=== PATIENT | male | born 1935 | race Caucasian/White ===

== ENCOUNTER 2025-05-21 13:06 | Outpatient (AMB) | payer MEDICARE, SELFPAY ==
--- OUTSIDE RECORDS SUMMARY | 2023-11-22 08:00 | XMS_ITS ---
Author Organization [facility] Address [address] [address] Care Team Providers Care Statistical Clerk Advertising Name Role Phone Dwight Fink Primary Care Provider JOSE Dee Unavailable [phone] REASON FOR VISIT Lt foot callus Encounters Encounter Location Date Provider Diagnosis [facility] [address] [address] 11/22/2023 JOSE LIZ Plan Of Treatment No Information Progress Notes * Rigoberto CARROLLph GDOB:[birth year] (89 yo M)Acc No.[id number]:11/22/2023 Progress Note Patient: Minh MACIEL Provider: Dory Callaway DPM :1935 A ge:88 Y S ex:Male Date:11/22/2023 Phone: Address:[address] [place], [place] [id number] Pcp:Dwight Fink Subjective: * Chief Complaints: * 1 . Lt foot callus. * Medical History: Objective: * Vitals: Assessment: Plan: * Treatment: * Billing Information: * Visit Code: * Procedure Codes: * Electronic signature of Darwin PAREKHPAdriana on 05/21/2025 at 05:16 PM EST Sign off status: Pending * Provider: Dory Callaway DPBishnu Date: 0 11/22/2023 Generated for Ruthie desai/Meli/eTjanenesmitting on: 1 07/22/2024 05:16 PM EST
--- OUTSIDE RECORDS SUMMARY | 2023-11-28 09:00 | XMS_ITS ---
Author Organization [facility] Address [address] [address] Care Team Providers Care Bakery Manager Name Role Phone Dwight Fink Primary Care Provider JOSE Dee Unavailable [phone] REASON FOR VISIT Lt foot callus Encounters Encounter Location Date Provider Diagnosis [facility] [address] [address] 11/28/2023 JOSE LIZ Plan Of Treatment No Information Progress Notes * Rigoberto CARROLLph GDOB:[birth year] (89 yo M)Acc No.[id number]:11/28/2023 Progress Note Patient: Minh MACIEL Provider: Dory Callaway DPM :1935 A ge:88 Y S ex:Male Date:11/28/2023 Phone: Address:[address] [place] [address] [id number] Pcp:Dwight Fink Subjective: * Chief Complaints: * 1 . Lt foot callus. * Medical History: Objective: * Vitals: Assessment: Plan: * Treatment: * Billing Information: * Visit Code: * Procedure Codes: * Electronic signature of Darwin PAREKHPAdriana on 05/21/2025 at 05:16 PM EST Sign off status: Pending * Provider: Dory Callaway DPBishnu Date: 0 11/28/2023 Generated for Ruthie desai/Meli/eTjanenesmitting on: 1 07/22/2024 05:16 PM EST
--- OUTSIDE RECORDS SUMMARY | 2025-01-25 05:45 | XMS_ITS ---
Author Organization [facility] Address [address] [address] Care Team Providers Care Technical Customer Support Specialist Name Role Phone Dwight Fink Primary Care Provider JOSE Dee Unavailable [phone] REASON FOR VISIT Lt foot callus Encounters Encounter Location Date Provider Diagnosis [facility] [address] [address] 01/25/2025 JOSE LIZ Plan Of Treatment No Information Progress Notes * Rigoberto CARROLLph GDOB:[birth year] (89 yo M)Acc No.[id number]:01/25/2025 Progress Note Patient: Minh MACIEL Provider: Dory Callaway DPM :1935 A ge:89 Y S ex:Male Date:01/25/2025 Phone: Address:[address] [place] [address] [id number] Pcp:Dwight Fink Subjective: * Chief Complaints: * 1 . Lt foot callus. * Medical History: Objective: * Vitals: Assessment: Plan: * Treatment: * Billing Information: * Visit Code: * Procedure Codes: * Electronic signature of Darwin PAREKHPAdriana on 05/21/2025 at 05:17 PM EST Sign off status: Pending * Provider: Dory Callaway DPBishnu Date: 0 01/25/2025 Generated for Ruthie desai/Meli/eTjanenesmitting on: 1 07/22/2024 05:17 PM EST
--- OUTSIDE RECORDS SUMMARY | 2025-05-21 10:15 | XMS_ITS | Encounter Summary ---
Author Organization [facility] Address [address] [place] [address] Care Team Providers Care Coconut Cooker Name Role Phone Danae Quintanilla MD Primary Care Provider [phone] Encounter Details Date Type Department Care Team (Late st Contact Info) Description 05/21/2025 10:15 AM EST Ancillary Procedure [facility] Cardiology [facility] [address] [facility] [address] [place] [address] Arrived Social History Tobacco Use Types Packs/Day Years Used Date Smoking Tobacco: Former Cigarettes 0.3 Q uit: 06/13/1994 Smokeless Tobacco: Never Alcohol Use Standard Drinks/Week Comments Yes 2 (1 standard drink = 0.6 oz pur e alcohol) rare Sex and Gender Information Value Date Recorded Sex Assigned at Male 02/28/2025 10:50 AM EDT Legal Sex Male 3:46 AM EST Gender Identity Male 02/28/2025 10:50 AM EDT Sexual Orientation Not on file documented as of this encounter Plan of Treatment Upcoming Encounters Date Type Department Care Team (Late st Contact Info) Description 06/24/2025 12:30 PM EST Ancillary Procedure [facility] Card[facility] [address] [facility] [address] [place] [phone] 09/04/2025 1:10 PM EDT Office Visit [facility] Cardiology [facility] [place] [address] [place] [address] Paula Emmanuel NP [address] [place] [address] [address] [place] [address] 03/19/2026 11:00 AM EDT Ancillary Procedure [facility] [address] [place] [phone] documented as of this encounter Procedures Procedure Name Priority Date/Time Associated Diagnosis Comments CARDIAC DEVICE CHECK- REMOTE- MURJ Routine 05/21/2025 10:12 AM EST documented in this encounter Results * Cardiac device check - Remote- MURJ (05/21/2025 10:12 AM EST) Date Time Interrogation Session [id number] CV DEVICE CHECK Type Interrogation Session Remote Scheduled CV DEVICE CHECK Implantable Pulse Generator Insulation Worker St.[employer]yder CV DEVICE CHECK Implantable Pulse Generator Type IPG CV DEVICE CHECK Implantable Pulse Generator Model 2272 Assurity MRI(TM) CV DEVICE CHECK Implantable Pulse Generator Serial Number [id number] CV DEVICE CHECK Implantable Pulse Generator Implant Date 20210227 CV DEVICE CHECK Battery Remaining Percentage 53.00 CV DEVICE CHECK Battery Remaining Longevity 58.0 CV DEVICE CHECK Battery Voltage 2.990 CV D EVICE CHECK Battery SUPERVISOR PAPER COATING Trigger 2.600 CV DEVICE CHECK Battery Status Middle of Service CV DEVICE CHECK Kasi Statistic RA Percent Paced 87.00 CV DEVICE CHECK Kasi Statistic RV Percent Paced 11.00 CV DEVICE CHECK Atrial Tachy Statistic AT/AF [place] Percent 2.00 CV DEVICE CHECK Lead Channel Sensing Intrinsic Amplitude 2.900 CV DEVICE CHECK Lead Channel Setting Sensing Sensitivity 0.30 CV DEVICE CHECK Lead Channel Impedance Value 390 CV DEVICE CHECK Lead Channel Pacing Threshold Amplitude 0.750 CV DEVICE CHECK Lead Channel Pacing Threshold Pulse Width 0.5 CV DEVICE CHECK Lead Channel RA Pacing Threshold Date 2025-05-20 CV DEVICE CHECK Lead Channel Setting Pacing Amplitude 1.750 CV DEVICE CHECK Lead Channel Setting Pacing Pulse Width 0.5 CV DEVICE CHECK Lead Channel Sensing Intrinsic Amplitude 12.000 CV DEVICE CHECK Lead Channel Setting Sensing Sensitivity 0.50 CV DEVICE CHECK Lead Channel Impedance Value 560 CV DEVICE CHECK Lead Channel Setting Pacing Amplitude 2.000 CV DEVICE CHECK Lead Channel Setting Pacing Pulse Width 0.5 CV DEVICE CHECK Kasi Setting Mode (NBG Code) DDDR CV DEVICE CHECK Kasi Setting Lower Rate Limit 60 CV DEVICE CHECK Kasi Setting AT Mode Switch Rate 180 CV DEVICE CHECK Kasi Setting Maximum Tracking Rate 130 CV DEVICE CHECK Kasi Setting Maximum Sensor Rate 130 CV DEVICE CHECK Kasi Setting PAV Delay 200 CV DEVICE CHECK Kasi Setting CLARE Delay 150 CV DEVICE CHECK Date of Service 2025-06-17 CV DEVICE CHECK Anatomical Region Laterality Modality Device Interroga tion 05/20/2025 3:17 AM EST Impressions 05/21/2025 10:06 AM EST Normal Remote: No Events * Normal Device Function * Alerts or events: None * Battery: Battery is at 53%, 4.83 yrs * Sensing, impedance and thresholds reviewed * Programmed parameters reviewed * Presenting rhythm reviewed * Heart Rate Histograms reviewed * No significant changes noted Normal Remote: With Events * Normal Device Function * Events or Alerts: PAF / Ongoing since 05/19/25 > 26 hours. / Meds include Coumadin / Rate Controlled. * Battery: Battery is at 53%, 4.83 yrs * Sensing, impedance and thresholds reviewed * Programmed parameters reviewed * Presenting rhythm reviewed * Heart Rate Histograms reviewed Narrative Procedure Note Linh Jordan NP - 05/21/2025 IMPRESSION: Normal Remote: No Events * Normal Device Function * Alerts or events: None * Battery: Battery is at 53%, 4.83 yrs * Sensing, impedance and thresholds reviewed * Programmed parameters reviewed * Presenting rhythm reviewed * Heart Rate Histograms reviewed * No significant changes noted Normal Remote: With Events * Normal Device Function * Events or Alerts: PAF / Ongoing since 05/19/25 > 26 hours. / Medsinclude Coumadin / Rate Controlled. * Battery: Battery is at 53%, 4.83 yrs * Sensing, impedance and thresholds reviewed * Programmed parameters reviewed * Presenting rhythm reviewed * Heart Rate Histograms reviewed Linh Jordan NP CV IMPLANTABLE CARDIAC DEVICE PROCEDURES Final Result documented in this encounter Visit Diagnoses Not on filedocumented in this encounter Care Teams Coconut Cooker Relationship Specialty Start Date End Date Danae Qiuntanilla MD [address] [place] [address] PCP - General Pulmonary Disease 04/17/12 documented as of this encounter
--- NOTE | 2025-05-21 13:57 | MHC.PC.OV ---
Vital Signs 05/21/25 14:19 Height 5 ft 3.46 in Weight 150 lb 2 oz BMI 26.2 BP 137/93 H Blood Pressure Location Lt brachial Position Sitting Pulse 62 Pulse Source Pulse Oximeter Temp 97.4 F Temp Source Oral Pulse Oximetry (%) 98 Oxygen Delivery Method Room Air Intake Visit Reasons: STUDENT COUNSELOR / Med Review Accompanied by: Spouse Allergies No Known Allergies Allergy (Verified 05/21/25 13:58) Tobacco use date assessed: 05/21/25 Fall risk assessment: 2 + Falls in past year Last assessed Fall Risk: 05/21/25 Dental Screening Dental Screen Date: 05/21/25 Did you have a dental visit in the last 12 months?: Yes Was dental information given to patient?: Patient has dentist [facility] Family History (Updated 05/21/25 @ 14:18 by Leittia Danielle [facility]) Father Prostate cancer Mother Stroke Brother Diabetes Sister Diabetes Social History Housing: House Patient Tobacco Use Status: Former Tobacco user e-Cigarette/Vaping Use: Never Used service: Yes Current occupational status: retired Cognitive needs: Yes (walker) Hearing needs: No Vision needs: Yes (glasses) Questionnaire PHQ-9 Over the last 2 weeks, how often have you been bothered by any of the following problems? 1. Little interest or pleasure in doing things: not at all 2. Feeling down, depressed, or hopeless: not at all 3. Trouble falling or staying asleep, or sleeping too much: not at all 4. Feeling tired or having little energy: not at all 5. Poor appetite or overeating: not at all 6. Feeling bad about yourself - or that you are a failure or have let yourself or your family down: not at all 7. Trouble concentrating on things, such as reading the newspaper or watching television: not at all 8. Moving or speaking so slowly that other people could have noticed. Or the opposite - being so fidgety or restless that you have been moving around a lot more than usual: not at all 9. Thoughts that you would be better off or of hurting yourself in some way: not at all Total score: 0 Depression Screening Interpretation: Negative Depression Screening Done: Yes Source: Developed by Drs. Pedro Luis Villa, Elise Monterroso, Wilton Hernandez and colleagues, with an educational viry from [employer]. Thrive Questionnaire Date Thrive assessed: 05/21/25 I am a: Patient What is your living situation today?: I have a steady place to live Within the past 12 months, did the food you bought not last and you didn't have the money to get more?: Never true Within the past 12 months, did you worry whether your food would run out before you got money to buy more?: Never true Do you have trouble paying for medicines?: No Do you have trouble getting transportation to medical appointments?: No Do you have trouble paying your heating and electricity bill?: No Do you have trouble taking care of your child, family member or friend?: No Do you have trouble with day-to-day activities such as bathing, preparing meals, shopping, managing finances, etc.?: No Are you currently unemployed and looking for a job?: No Are you interested in more education?: No Please select the resources that you would like help with: None THRIVE Score: 0 AUDIT C Alcohol Use Questionnaire (AUDIT-C) 1. How often do you have a drink containing alcohol?: Never Total Score: 0 RADHA-7 AMB Questionnaire RADHA-7 Date RADHA - 7 assessed: 05/21/25 Feeling nervous, anxious, or on edge: 0 = Not at all Not being able to stop or control worryin = Not at all Worrying too much about different things: 0 = Not at all Trouble relaxin = Not at all Being so restless that it is hard to sit still: 0 = Not at all Becoming easily annoyed or irritable: 0 = Not at all Feeling afraid as if something awful might happen: 0 = Not at all Total RADHA-7 score (0-4 normal; 5-9 mild; 10-14 moderate; 15-21 severe): 0 Source: Developed by Drs. Pedro Luis Villa, Elise Monterroso, Wilton Hernandez and colleagues, with an educational viry from [employer]. Physical exam (Primary Care) Depression Screening Interpretation: Negative Office Procedures Flu Questionnaire Does the patient have a severe egg allergy?: No Does the patient have severe life threatening allergies?: No Does the patient have a fever or illness today?: No Has the patient ever had Guillain-[place] Syndrome?: No Has the patient ever had any past reaction to a flu shot?: No Immunizations Fluarix 9980-1523 (PF) 45 mcg (15 mcg x 3)/0.5 mL IM syringe Performing Provider: Dell Petersen MD Performing Location: [facility] Administered by: Letitia Danielle CMA on 05/21/25 14:27 Dose Route Admin Location Dispensed Lot Number Expiration Date [facility] Shoe Lay Out Planner 0.5 mL IM Right Deltoid 0.5 mL [id number] 12/11/15 [id number] [employer] VIS Given Date VIS Provided VIS Publication Date 05/21/25 Single Vaccine 24 Eligibility Eligibility Date Funding Source Not [facility] Eligible 05/21/25 Private Coding Assessment & Plan Assessment & Plan Orders: Orders Influenza [id number] Immunization Today Z23 - Encounter for immunization
[2025-05-21 14:19] VITALS: BP 137/93; PULSE 62; TEMP 36.3; O2SAT 98; BMI 26.2
--- OUTSIDE RECORDS SUMMARY | 2025-05-21 17:17 | XMS_ITS | Encounter Summary ---
Author Organization [facility] Address [address] [place] [address] Care Team Providers Care Integration Consultant Name Role Phone Danae Quintanilla MD Primary Care Provider [phone] Encounter Details Date Type Department Care Team (Late st Contact Info) Description 05/17/2025 Lab [facility] Cardiology [facility] [address] [place] [address] StarlaChemo Rios MD [address] [place] [address] Dr [address] [place] [address] Longstanding persistent atrial fibrillation (CMS/HCC V24, CMS/HCC V28) Social History Tobacco Use Types Packs/Day Years [...] Description 06/24/2025 12:30 PM EST Ancillary Procedure [facility] Cardiology [facility] [address] [place] [phone] 09/04/2025 1:10 PM EDT Office Visit [facility] [address] [place] [address] Paula Emmanuel NP [address] [place] [address] Dr [address] [place] [address] 03/19/2026 11:00 AM EDT Ancillary Procedure [facility] Cardiology [facility] [address] [place] [address] documented as of this encounter Visit Diagnoses Diagnosis Longstanding persistent atrial fibrillation (CMS/HCC V24, CMS/HCC V28) Encounter for adjustment or management of cardiac device documented in this encounter Orders Lab Orders Without Results Count Last Ordered D ate First Ordered Date PROTHROMBIN TIME WITH INR 1 05/17/2025 documented in this encounter Care Teams Integration Consultant Relationship Specialty Start Date End Date Danae Quintanilla MD [address] [facility] [place] [address] PCP - General Pulmonary Disease 04/17/12 documented as of this encounter
--- OUTSIDE RECORDS SUMMARY | 2025-05-21 17:17 | XMS_ITS | Patient Health Record ---
Author Organization [facility] Address [address] [address] Care Team Providers Care Supercharge Repair Supervisor Name Role Phone Dwight Fink Primary Care Provider JOSE Dee Unavailable [phone] Allergies No Known Allergies Reason For Referral No Information Medications Medication SIG (Take, Route, Frequency, Duration) Notes Start Date End Date Status Aspirin 81 81 MG 1 tablet Orally Once a day Active TheraLith XR - as directed Orally Active Warfarin Sodium 5 MG 1 tablet Orally Onc e a day Active Finasteride 5 MG 1 tablet Orally Once a day Active Flomax 0.4 MG 1 capsule Orally Onc e a day Active Zetia 10 MG 1 tablet Orally Once a day Active Zocor 40 MG 1 tablet in the even ing Orally Once a day Active Metoprolol Tartrate 25 MG 1 tablet with food Orally Twice a day Active Vitamin C 500 MG 1 tablet Orally Once a day Not-Taking Vitamin D 25 MCG (1000 UT) 1 tablet Orally Once a day Active Problems Problem Type SNOMED Code ICD Code Onset Dates Problem Status W/U Status Risk Notes Problem Atherosclerosis (57207216) Unspecified atherosclerosis (I70.90) Active confirmed Problem Acquired hammer toe of left foot (1189399022094642) 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) Active confirmed Vital Signs Heart Rate 80 /min 04/30/2025 Temperature 96.2 degrees Fahrenheit 04/30/2025 Respiratory Rate 20 /min 04/30/2025 Height 5ft 3in in 04/30/2025 Encounters Encounter Location Date Provider Diagnosis [facility] [address] [address] 06/15/2024 JOSE LIZ Acquired deformity of left toe M20.62 ; Callus of toe L84 and Pain in toe of left foot M79.675 [facility] [address] [address] 11/16/2024 JOSE LIZ Acquired deformity of left toe M20.62 ; Callus of toe L84 and Pain in toe of left foot M79.675 [facility] [address] [address] 02/22/2025 JOSE LIZ 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 I reviewed his past medical history. He presents with a recurrent painful pressure callus to the dorsum of the left 2nd PIPJ. We discussed the underlying rigid hammertoe deformity being the culprit, again. I discussed how the deformity rubs in his shoe gear and his body creates an extra layer of keratin tissue to protect from the friction. I advised that the callus will continue to form if the pressure to the toe does not change. His new slip on shoes are likely to blame as they are narrow and have no give and the 2nd toe is rubbing the top. I advised he needs shoes with a bigger toe box. I discussed padding, wearing socks, and shoe gear with a greater depth. I also discussed surgery to decrease the PIPJ flexion deformity to the left 2nd toe. I did advise that surgery should be avoided due to the risks. He did wish to have the callus lesion debrided. I used a sterile 15 blade and debrided the tough keratin layer of skin away from the left 2nd PIPJ down to healthy epithelial skin. He tolerated this well. I provided him with another gel toe sleeve to wear. He did find this very comfortable. He should not wear the shoes he has on today as these are going to create pain. Ultimately he should focus on softer toe box shoe gear. He needs to stay more consistent with the toe sleeve. 06/15/2024 Callus of toe (ICD-10 - L84) 11/16/2024 Acquired deformity of left toe (ICD-10 - M20.62) Patient examined and evaluated. I reviewed his past medical history. He presents with a recurrent painful pressure callus to the dorsum of the left 2nd PIPJ. We discussed the underlying rigid hammertoe deformity being the culprit, again. I discussed how the deformity rubs in his shoe gear and his body creates an extra layer of keratin tissue to protect from the friction. I advised that the callus will continue to form if the pressure to the toe does not change. He has finally changed shoe gear and this is much better. I also discussed surgery to decrease the PIPJ flexion deformity to the left 2nd toe. I did advise that surgery is too much of a risk for him. I think if anything amputation would be needed and this is not neccessary. He did wish to have the callus lesion debrided. I used a sterile 15 blade and debrided the tough keratin layer of skin away from the left 2nd PIPJ down to healthy epithelial skin. He tolerated this well. . He should not wear the shoes he has on today as these are going to create pain. Ultimately he should focus on softer toe box shoe gear. He needs to stay more consistent with the toe sleeve. He can follow back with me as needed. 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 He has a rigid hammertoe deformity to the left 2nd toe that rubs on shoe gear. This creates a painful callus to the PIPJ. He has been wearing better shoes to avoid this. He has been given gel sleeves, but rarely uses these. I discussed that this will continue to occur due to pressure and the deformity. He is too high risk for any surgical procedures. I debrided the callus down to healthier epithelial skin. He tolerated this well. I advised he continue with the softer shoe gear. He has a significant adductovarus to the right 3rd toe causing it to sit under the right 2nd toe. Fairly rigid deformity. I again advised that toe sleeves and spacers are the best conservative measures for this. No lesion or break down to the toes. He will follow back with me as needed. 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 He has a rigid hammertoe deformity to the left 2nd toe that rubs on shoe gear. This creates a painful callus to the PIPJ. He has been wearing better shoes to avoid this. He has been given gel sleeves, but rarely uses these. I discussed that this will continue to occur due to pressure and the deformity. He is too high risk for any surgical procedures. I debrided the callus down to healthier epithelial skin. He tolerated this well. I advised he continue with the softer shoe gear. He has a significant adductovarus to the right 3rd toe causing it to sit under the right 2nd toe. Fairly rigid deformity. I again advised that toe sleeves and spacers are the best conservative measures for this. No lesion or break down to the toes. He will follow back with me as needed. 04/30/2025 Callus of toe (ICD-10 - L84) 02/22/2025 Callus of toe (ICD-10 - L84) 11/16/2024 Pain in toe of left foot (ICD-10 - M79.675) 06/15/2024 Pain in toe of left foot (ICD-10 - M79.675) Plan Of Treatment Pending Test Test Name Order Date Trim skin lesion 12/17/2022 Trim skin lesion 12/14/2023 Insurance Providers Payer Name Payer Address Payer Phone Subscriber Number Group Number Insured Name Patient Relationship to Insured Coverage Start Date Coverage End Date [employer] of [place] [address] [place] [phone] [id number] [place] Self - patient is the insured [employer] [address] [place] [phone] [id number] [place] Self - patient is the insured Medical (General) History Medical History History ICD Code Coronary Artery Disease Hypertension Hyperlipidemia Nephrolithiasis Benign Prostate Hyperplasia Obstructive Sleep Apnea Hyperglycemia 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
--- OUTSIDE RECORDS SUMMARY | 2025-05-21 17:17 | XMS_ITS | Clinical Summary ---
Author Organization [facility] Prior to 11/10/[address] [place] [id number] Care Team Providers Care Head Of Digital Advertising & Integration Name Role Phone Danae Quintanilla MD Primary Care Provider [phone] Social History Tobacco Use Types Packs/Day Years Used Date Smoking Tobacco: Never Assessed Sex and Gender Information Value Date Recorded Sex Assigned at Not on file Gender Identity Not on file Sexual Orientation Not on file Job Start Date Occupation Industry Not on file Not on file Not on file Plan of Treatment Health Maintenance Due Date Last Done Comments Depression Screening 1948 Preventative Health Evaluation 1954 DTap / Tdap / Td (1 - Tdap) 10/26/1955 Shingrix-Zoster Vaccine (1 o f 2) 1986 Fall Risk Assessment 2001 RSV Adult > 60+ Yrs or (1 - 1-dose 75+ series) 10/26/2011 Pneumococcal Vaccine (2 of 2 - PCV) 06/30/2014 06/30/2013 COVID-19 Vaccine (2024-2 6 season) 2025 08/16/2020, 07/26/2020 Influenza Vaccine (#1) 2025 Hepatitis B Vaccines Aged Out No long er eligible based on patient's age to complete this topic RSV Ped < 20 months Aged Out No longe r eligible based on patient's age to complete this topic Care Teams Head Of Digital Advertising & Integration Relationship Specialty Start Date End Date Danae Quintanilla MD [address] [place] [id number] PCP - General Pulmonary Disease 10/14/17
--- OUTSIDE RECORDS SUMMARY | 2025-05-21 17:17 | XMS_ITS | Clinical Summary ---
Author Organization [facility] [address] [place] Address [address] [place] [address] Phone Care Team Providers Care Lean Manufacturing Coordinator Name Role Phone Danae Quintanilla MD Primary Care Provider [phone] Allergies No known active allergies Medications warfarin (COUMADIN) 5 mg tablet TAKE ONE TABLET BY MOUTH ONCE DAILY 90 tablet 04/08/20 25 Active aspirin 81 mg EC tablet Take 1 tablet (81 mg total) by mouth 1 (one) time each day. Active ascorbic acid (Vitamin C) 500 mg tablet Take 1 tablet (500 mg total) by mouth 1 (one) time each day. Active cholecalcifero l (VITAMIN D-3) 25 mcg (1,000 unit) capsule Take 1 capsule (1,000 Units total) by mouth 1 (one) time each day. Active tamsulosin (Flomax) 0.4 mg 24 hr capsule Take 1 capsule (0.4 mg total) by mouth 1 (one) time each day at the same time. Active vit A/vit C/vit E/zinc/copper (PRESERVISION AREDS ORAL) PreserVision AREDS Capsule 04/06/20 22 Active finasteride (PROSCAR) 5 mg tablet Take 1 tablet (5 mg total) by mouth 1 (one) time each day. Do not crush, chew, or split. Active ezetimibe (Zetia) 10 mg tablet Take 1 tablet (10 mg total) by mouth 1 (one) time each day at the same time. 30 each 2 04/09/20 25 026 Active simvastatin (ZOCOR) 40 mg tablet Take 1 tablet (40 mg total) by mouth at bedtime. 90 each 2 04/09/20 25 Active metoprolol succinate (TOPROL-XL) 50 mg 24 hr tablet TAKE ONE TABLET BY MOUTH ONCE DAILY 90 tablet 3 04/23/20 25 Active metoprolol succinate (TOPROL-XL) 50 mg 24 hr tablet TAKE ONE TABLET BY MOUTH ONCE DAILY 90 tablet 1 11/13/19 25 025 Discontinued Active Problems Problem Noted Date Diagnosed Date Paroxysmal atrial fibrillation 04/09/2025 Assessment & Plan (04/09/2025 3:03 PM EDT): History of paroxysmal atrial fibrillation on rate control therapy with beta- mery. Continues on anticoagulation therapy with warfarin. No abnormal bleeding has been noted. 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 At his last office visit in December 2023, recent echocardiogram at that time showed new mild reduced LVEF. Nuclear stress test in November 2023 showed inferior wall infarct without any significant changes when compared to the prior nuclear stress test from December 2021; no ischemia. At his last office visit, it was recommended he undergo cardiac PYP scan to rule out TTR amyloidosis and associated lab testing to rule out AL amyloidosis. Unfortunately, this was not completed. We discussed his prior testing including stress test, echocardiogram and reasoning for ordering cardiac PYP scan. At this time, through shared decision making with the patient and his spouse, we agreed he undergo repeat echocardiogram to reevaluate his LV function and I will notify him of the results as soon as it become available. We discussed depending on his LVEF, he will consider proceeding with amyloidosis workup. Depending on the results, we discussed possibly optimizing GDMT. In the meantime, he will continue on beta-mery therapy. He appears euvolemic on physical exam. Orders: Transthoracic echocardiogram (TTE) complete with PRN contrast, bubble, strain, and 3D order panel; Future Coronary artery disease invo lving [place] coronary artery of [place] heart without angina pectoris 04/09/2025 Assessment & Plan (04/09/2025 3:03 PM EDT): Patient has a history of coronary artery disease status post CABG x 5 in the year 1999. Nuclear stress test November 2023 showed an infarct in the basal inferior wall without ischemia. Patient has a baseline inferior/basal inferior wall infarct when compared to nuclear stress test June 2021. There were no areas of ischemia. Currently, he denies any anginal symptoms or episodes of chest pain. He continues on beta-mery, aspirin, Zetia and statin. Orders: Transthoracic echocardiogram (TTE) complete with PRN contrast, bubble, strain, and 3D order panel; Future Primary hypertension 04/09/2025 Assessment & Plan (04/09/2025 3:03 PM EDT): Blood pressure well-controlled today. He will continue his current antihypertensive medication regimen as prescribed. Resolved Problems Problem Noted Date Diagnosed Date Resolved Date Longstanding persistent atrial fibrillation 04/27/2024 04/09/2025 Encounters Date Type Department Care Team Description 05/21/2025 10:15 AM EST Ancillary Procedure [facility] [address] [place] [phone] Arrived 05/17/2025 Lab [facility] [address] [facility] [address] [place] [address] Chemo Morse MD Longstanding persistent atrial fibrillation (CMS/HCC V24, CMS/HCC V28) 05/13/2025 11:35 AM EST Lab [facility] [address] [place] [address] Longstanding persistent atrial fibrillation (CMS/HCC V24, CMS/HCC V28) 05/13/2025 Anticoagulation - Warfarin Visit [facility] [address] [facility] [address] [place] [phone] Chemo Morse MD Paroxysmal atrial fibrillation (CMS/HCC V24, CMS/HCC V28) (Primary Dx) 05/10/2025 Lab [facility] [address] [place] [address] Chemo Morse MD Longstanding persistent atrial fibrillation ([facility]/HCC V24, CMS/HCC V28) 05/03/2025 Lab [facility] [address] [facility] [address] [place] [address] Chemo Morse MD Longstanding persistent atrial fibrillation ([facility]/HCC V24, CMS/HCC V28) 04/26/2025 Lab [facility] [address] [facility] [address] [place] [address] Chemo Morse MD Longstanding persistent atrial fibrillation ([facility]/HCC V24, CMS/HCC V28) 04/23/2025 Anticoagulation - Warfarin Visit [facility] [address] [facility] [address] [place] [address] Chemo Morse MD Paroxysmal atrial fibrillation (CMS/HCC V24, CMS/HCC V28) (Primary Dx) 04/22/2025 1:40 PM EST [facility] [place] [address] [place] [phone] Longstanding persistent atrial fibrillation ([facility]/HCC V24, CMS/HCC V28) 04/19/2025 Lab [facility] [address] [place] [address] Chemo Morse MD Longstanding persistent atrial fibrillation ([facility]/HCC V24, [facility]/HCC V28) 04/12/2025 Lab [facility] [address] [place] [address] Chemo Morse MD Longstanding persistent atrial fibrillation ([facility]/HCC V24, CMS/HCC V28) 04/09/2025 2:10 PM EDT Office Visit [facility] [address] [place] [address] Cholo, Paula A, COMPENSATION ASSOCIATE Paroxysmal atrial fibrillation (CMS/HCC V24, CMS/HCC V28) (Primary Dx); Dilated cardiomyopathy (CMS/HCC V24, CMS/HCC V28); Coronary artery disease involving [place] coronary artery of [place] heart without angina pectoris; Primary hypertension 04/08/2025 Anticoagulation - Warfarin Visit [facility] [address] [place] [address] Chemo Morse MD Longstanding persistent atrial fibrillation (CMS/HCC V24, CMS/HCC V28) (Primary Dx) 04/05/2025 Lab [facility] [address] [place] [address] Chemo Morse MD Longstanding persistent atrial fibrillation (CMS/HCC V24, CMS/HCC V28) 04/01/2025 Anticoagulation - Warfarin Visit [facility] [address] [place] [address] Chemo Morse MD Longstanding persistent atrial fibrillation (CMS/HCC V24, CMS/HCC V28) (Primary Dx) 03/29/2025 Anticoagulation - Warfarin Visit [facility] [address] [place] [address] Chemo Morse MD Longstanding persistent atrial fibrillation (CMS/HCC V24, CMS/HCC V28) (Primary Dx) 03/29/2025 Lab [facility] [address] [place] [address] Chemo Morse MD Longstanding persistent atrial fibrillation (CMS/HCC V24, CMS/HCC V28) 03/28/2025 Anticoagulation - Warfarin Visit [facility] [address] [place] [address] Chemo Morse MD Longstanding persistent atrial fibrillation (CMS/HCC V24, CMS/HCC V28) (Primary Dx) 03/22/2025 Lab [facility] [address] [place] [address] Chemo Morse MD Longstanding persistent atrial fibrillation (CMS/HCC V24, CMS/HCC V28) 03/19/2025 11:00 AM EDT Ancillary Procedure [facility] [address] [place] [address] Encounter for adjustment or management of cardiac device 03/15/2025 Lab [facility] [address] [place] [phone] Chemo Morse MD Longstanding persistent atrial fibrillation (CMS/HCC V24, CMS/HCC V28) 03/11/2025 7:30 PM EDT Ancillary Procedure [facility] [address] [place] [address] 03/08/2025 Lab [facility] [address] [place] [address] Chemo Morse MD Longstanding persistent atrial fibrillation (CMS/HCC V24, CMS/HCC V28) 03/01/2025 Anticoagulation - Warfarin Visit [facility] [address] [place] [address] Chemo Morse MD Longstanding persistent atrial fibrillation (CMS/HCC V24, CMS/HCC V28) (Primary Dx) 03/01/2025 Lab [facility] [address] [place] [address] Chemo Morse MD Longstanding persistent atrial fibrillation (CMS/HCC V24, CMS/HCC V28) 02/22/2025 Lab [facility] [address] [place] [address] Chemo Morse MD Longstanding persistent atrial fibrillation (CMS/HCC V24, CMS/HCC V28) from Last 3 Months Immunizations Immunization Administration Dates Next Due Pfizer SARS-CoV-2 COVID-19, mRNA, LNP-S, preservative free 08/16/2020,07/26/2020 Medical History Medical History Date Comments Chronic ischemic heart disease D X:Chronic ischemic heart disease Hyperlipidemia DX:Hyperlipidemi a Essential hypertension DX:Essent ial hypertension Social History Tobacco Use Types Packs/Day Years [...] AM EDT Sexual Orientation Not on file Last Filed Vital Signs Vital Sign Reading Time Taken Comments Blood Pressure 108/50 04/09/2025 1:37 PM EDT Pulse 72 04/09/2025 1:37 PM EDT Temperature - - Respiratory Rate - - Oxygen Saturation 99% 04/09/2025 1:37 PM EDT Inhaled Oxygen Concentration - - Weight 68.9 kg (152 lb) 04/09/2025 1:37 PM EDT Height 160 cm (5' 3 ) 04/09/2025 1:37 PM EDT Body Mass Index 26.93 04/09/2025 1:37 PM EDT Plan of Treatment Upcoming Encounters Date Type Department Care Team (Late st Contact Info) Description 06/24/2025 12:30 PM EST Ancillary Procedure [facility] [address] [place] [phone] 09/04/2025 1:10 PM EDT Office Visit [facility] [address] [place] [address] Paula Emmanuel NP [facility] [address] [place] [phone] 03/19/2026 11:00 AM EDT Ancillary Procedure [facility] - [address] [place] [address] Health Maintenance Due Date Last Done Comments DTaP,Tdap,and Td Vaccines (1 - Tdap) 10[birth year]26/1954 Zoster Vaccines (1 of 2) 1986 RSV Immunization Adult Patients (1 - 1-dose 75+ series) 10/26/2011 Pneumococcal Vaccine: 50+ Years (2 of 2 - PCV) 06/30/2014 06/30/2013 Falls Risk Assessment 05/21/2022 Medicare Annual Wellness Visit 05/21/2022 Social Influencers of Health Screening 05/21/2022 Depression Screening 06/13/2024 COVID-19 Vaccine ( season) 2025 05/21/2022, 11/20/2021, 05/15/2021, Additional history exists Influenza Vaccine (#1) 2025 , 03/31/2023, 04/23/2022, Additional history exists Hypertension/CHF/CAD Annual BMP Blood Test 01/03/2026 01/03/2025, 12/22/2023, 12/22/2023, Additional history exists Cholesterol Screening (Lipid Panel) 01/03/2030 01/03/2025, 12/22/2023, 12/22/2023, Additional history exists HIB Vaccines Aged Out No longer eligi ble based on patient's age to complete this topic HPV Vaccines Aged Out No longer eligi ble based on patient's age to complete this topic Hepatitis A Vaccines Aged Out No long er eligible based on patient's age to complete this topic Hepatitis B Vaccines Aged Out No long er eligible based on patient's age to complete this topic IPV Vaccines Aged Out No longer eligi ble based on patient's age to complete this topic MMR Vaccines Aged Out No longer eligi ble based on patient's age to complete this topic Meningococcal ACWY Vaccine Aged Out N o longer eligible based on patient's age to complete this topic Meningococcal B Vaccine Aged Out No l onger eligible based on patient's age to complete this topic RSV Immunization Patients Under 20 months Aged Out No longer eligible based on patient's age to complete this topic Varicella Vaccines Aged Out No longer eligible based on patient's age to complete this topic Medical Devices Implanted Type Area Creative Technologist Device Identifier Shelf Expiration Date Model / Serial / Lot Hira 2272 Assurity Mri(Tm) [id number] Implanted: (Quantity not on file) Cardiac Pacemaker [facility] [employer] 2272 ASSURITY MRI(TM) / [id number] / Abbmarbella-Stpalak Assurity Mri [id number] Implanted: (Quantity not on file) Cardiac Pacemaker [facility] ASS[employer] MRI 2272 / [id number] / Procedures Procedure Name Priority Date/Time Associated Diagnosis Comments CARDIAC DEVICE CHECK- REMOTE- MURJ Routine 05/21/2025 10:12 AM EST PROTHROMBIN TIME WITH INR Routine 05/13/2025 11:38 AM EST Longstanding persistent atrial fibrillation (CMS/HCC V24, CMS/HCC V28) PROTHROMBIN TIME WITH INR Routine 04/22/2025 1:41 PM EST Longstanding persistent atrial fibrillation (CMS/HCC V24, CMS/HCC V28) ECG 12-LEAD Routine 04/09/2025 3:01 PM EDT Paroxysmal atrial fibrillation (CMS/HCC V24, CMS/HCC V28) POC PROTIME INR BLOOD Routine 04/08/2025 3:19 PM EDT Longstanding persistent atrial fibrillation (CMS/HCC V24, CMS/HCC V28) PROTHROMBIN TIME WITH INR Routine 04/08/2025 11:04 AM EDT Longstanding persistent atrial fibrillation (CMS/HCC V24, CMS/HCC V28) PROTHROMBIN TIME WITH INR Routine 04/01/2025 11:06 AM EDT Longstanding persistent atrial fibrillation (CMS/HCC V24, CMS/HCC V28) PROTHROMBIN TIME WITH INR Routine 03/29/2025 10:56 AM EDT Longstanding persistent atrial fibrillation (CMS/HCC V24, CMS/HCC V28) PROTHROMBIN TIME WITH INR Routine 03/28/2025 11:03 AM EDT Longstanding persistent atrial fibrillation (CMS/HCC V24, CMS/HCC V28) CARDIAC DEVICE CHECK- IN CLINIC- MURJ Routine 03/20/2025 10:52 AM EDT Encounter for adjustment or management of cardiac device CARDIAC DEVICE CHECK- REMOTE- MURJ Routine 03/11/2025 7:25 PM EDT PROTHROMBIN TIME WITH INR Routine 02/28/2025 10:56 AM EDT Longstanding persistent atrial fibrillation (CMS/HCC V24, CMS/HCC V28) CREATININE, SERUM Routine 01/03/2025 11: 57 AM EDT Heart disease, unspecified Heart failure, unspecified (CMS/HCC V24, CMS/HCC V28) Essential hypertension, malignant Hyperlipemia Senile arthritis Avitaminosis D Special screening for malignant neoplasm of prostate LIPID PANEL WITH REFLEX TO DIRECT LDL Routine 01/03/2025 11:57 AM EDT Heart disease, unspecified Heart failure, unspecified (CMS/HCC V24, CMS/HCC V28) Essential hypertension, malignant Hyperlipemia Senile arthritis Avitaminosis D Special screening for malignant neoplasm of prostate from Last 3 Months or Most Recently Relevant to Health Maintenance Results * Cardiac device check - Remote- MURJ (05/21/2025 10:12 AM EST) Only the most recent of2 resultswithin the time period is included. Date Time Interrogation Session [id number] CV DEVICE CHECK Type Interrogation Session Remote Scheduled CV DEVICE CHECK Implantable Pulse Generator Creative Technologist [employer] CV DEVICE CHECK Implantable Pulse Generator Type IPG CV DEVICE CHECK Implantable Pulse Generator Model 2272 Assurity MRI(TM) CV DEVICE CHECK Implantable Pulse Generator Serial Number [id number] CV DEVICE CHECK Implantable Pulse Generator Implant Date 20210227 CV DEVICE CHECK Battery Remaining Percentage 53.00 CV DEVICE CHECK Battery Remaining Longevity 58.0 CV DEVICE CHECK Battery Voltage 2.990 CV D EVICE CHECK Battery SCREEN PRINTING PASTER Trigger 2.600 CV DEVICE CHECK Battery Status Middle of Service CV DEVICE CHECK Kasi Statistic RA Percent Paced 87.00 CV DEVICE CHECK Kasi Statistic RV Percent Paced 11.00 CV DEVICE CHECK Atrial Tachy Statistic AT/AF [place] Percent 2.00 CV DEVICE CHECK Lead Channel [...] CV IMPLANTABLE CARDIAC DEVICE PROCEDURES Final Result * (ABNORMAL) Prothrombin time with INR (05/13/2025 11:38 AM EST) Only the most recent of7 resultswithin the time period is included. [facility] Protime 25.9(H) 10.5 - 13.3 sec LAB COAGULATION METHOD 05/13/2025 2:35 PM EST [facility] INR 2.3(H) 0.8 - 1.1 LAB COAGULATION METHOD 05/13/2025 2:35 PM EST [facility] Blood Venous blood specimen / Unknown Venipuncture / Unknown 05/13/2025 11:38 AM EST 05/13/2025 11:38 AM EST Narrative [facility] - 05/13/2025 2:35 PM EST Std. Therapy 2.0-3.0 INR High Dose Therapy 3.0-4.5 INR Ranges may vary depending on clinical indications and protocol. Chemo Morse MD LAB BLOOD ORDERABLES F inal Result [facility] [address] [place] [address], [place] [phone] * ECG 12 lead (04/09/2025 3:01 PM EDT) Ventricular Rate ECG 81 BPM GEMUSE Atrial Rate 81 BPM GEMUSE P-R Interval 194 ms GEMUSE QRS Duration 110 ms GEMUSE Q-T Interval 386 ms GEMUSE QTc 448 ms GEMUSE P Wave [place] 27 degrees GEMUSE R [place] 26 degrees GEMUSE T [place] 21 degrees GEMUSE ECG Interpretation Atrial-paced rhythm Abnormal ECG No previous ECGs available Confirmed by MD BERE, ARMANDO ([id number]) on 04/09/2025 7:31:14 PM GEMUSE 04/09/2025 1:55 PM EDT 04/09/2025 7:31 PM EDT Paula Emmanuel COMPENSATION ASSOCIATE ECG ORDERABLES Edited Resu lt - Final GEMUSE * POC Protime INR Blood (04/08/2025 3:19 PM EDT) Lot Number INR POC 2.5 Prothrombin Time POC Exp Date Blood 04/08/2025 3:19 PM EDT Chemo Morse MD POINT OF CARE TEST ENT ER/EDIT ORDERABLES Final Result * CARDIAC DEVICE CHECK- IN CLINIC- MURJ (03/20/2025 10:52 AM EDT) Date Time Interrogation Session [id number] CV DEVICE CHECK Implantable Pulse Generator Creative Technologist [employer] CV DEVICE CHECK Implantable Pulse Generator Type IPG CV DEVICE CHECK Implantable Pulse Generator Model Assurity MRI 2272 CV DEVICE CHECK Implantable Pulse Generator Serial Number [id number] CV DEVICE CHECK Implantable Pulse Generator Implant Date 20210227 CV DEVICE CHECK Battery Voltage 2.990 CV D EVICE CHECK Battery Status Middle of Service CV DEVICE CHECK Kasi Statistic RA Percent Paced 89.00 CV DEVICE CHECK Kasi Statistic RV Percent Paced 9.00 CV DEVICE CHECK Lead Channel Sensing Intrinsic Amplitude 3.700 CV DEVICE CHECK Lead Channel Impedance Value 388 CV DEVICE CHECK Lead Channel Pacing Threshold Amplitude 0.750 CV DEVICE CHECK Lead Channel Pacing Threshold Pulse Width 0.5 CV DEVICE CHECK Lead Channel RA Pacing Threshold Date 2025-03-19 CV DEVICE CHECK Lead Channel Setting Pacing Amplitude 1.750 CV DEVICE CHECK Lead Channel Setting Pacing Pulse Width 0.5 CV DEVICE CHECK Lead Channel Sensing Intrinsic Amplitude 12.000 CV DEVICE CHECK Lead Channel Impedance Value 513 CV DEVICE CHECK Lead Channel Pacing Threshold Amplitude 0.750 CV DEVICE CHECK Lead Channel Pacing Threshold Pulse Width 0.5 CV DEVICE CHECK Lead Channel RV Pacing Threshold Date 2025-03-19 CV DEVICE CHECK Lead Channel Setting Pacing [...] 150 CV DEVICE CHECK Date of Service 2026-03-07 CV DEVICE CHECK Anatomical Region Laterality Modality Device Interroga tion 03/19/2025 Impressions 03/24/2025 8:14 PM EDT Normal In-Office: No Events * Normal Device Function * Alerts or events: No new clinically significant events * Battery: MOS, 5.10 yrs * Sensing, impedance and thresholds reviewed and tested * Presenting Rhythm: AP-VS 70S * Underlying Rhythm: -VS 58 BPM * Heart Rate Histograms reviewed * Pacing and Detection Parameters were evaluated Narrative Procedure Note Luis Burroughs MD - 03/24/2025 IMPRESSION: Normal In-Office: No Events * Normal Device Function * Alerts or events: No new clinically significant events * Battery: MOS, 5.10 yrs * Sensing, impedance and thresholds reviewed and tested * Presenting Rhythm: AP-VS 70S * Underlying Rhythm: -VS 58 BPM * Heart Rate Histograms reviewed * Pacing and Detection Parameters were evaluated us Order Referral Cardiovascular CV IMPLANTABLE CAR DIAC DEVICE PROCEDURES Final Result * (ABNORMAL) Lipid panel with reflex to direct LDL (01/03/2025 11:57 AM EDT) Cholesterol 129 0 - 200 mg/dL LAB CHEMISTRY METHOD 01/03/2025 6:11 PM EDT [facility] Triglycerides 134 <150 mg/dL LAB CHEMISTRY METHOD 01/03/2025 6:11 PM EDT [facility] HDL 53 mg/dL LAB CHEMISTRY METHOD 01/03/2025 6:[address] [facility] LDL Calculated 49(L) 50 - 130 mg/dL LAB CHEMISTRY METHOD 01/03/2025 6:11 PM EDT [facility] VLDL Cholesterol Cheo 26.8 mg/dL LAB CHEMISTRY METHOD 01/03/2025 6:11 PM EDT [facility] Comment:No established refer ence range. Blood Venous blood specimen / Unknown Venipuncture / Unknown 01/03/2025 11:57 AM EDT 01/03/2025 11:57 AM EDT us Danae Quintanilla MD LAB BLOOD ORDERABLES Final Res ult [facility] [address] [place] [address], [place] [phone] * (ABNORMAL) Creatinine (01/03/2025 11:57 AM EDT) Creatinine 0.60(L) 0.70 - 1.30 mg/dL LAB CHEMISTRY METHOD 01/03/2025 2:56 PM EDT [facility] eGFR 93 >=60 mL/min/1. 73m2 LAB CHEMISTRY METHOD 01/03/2025 2:56 PM EDT [facility] Comment:Calculation based on the Chronic Kidney Disease Epidemiology Collaboration (CKD-EPI) equation refit without adjustment for race. Blood Venous blood specimen / Unknown Venipuncture / Unknown 01/03/2025 11:57 AM EDT 01/03/2025 11:57 AM EDT us Danae Quintanilla MD LAB BLOOD ORDERABLES Final Res ult [facility] [address] [place] [address], [place] [phone] from Last 3 Months or Most Recently Relevant to Health Maintenance Insurance MEDICARE [facility] Care Teams Lean Manufacturing Coordinator Relationship Specialty Start Date End Date Danae Quintanilla MD [address] [place] [address] PCP - General Pulmonary Disease 04/17/12
--- OUTSIDE RECORDS SUMMARY | 2025-05-21 17:18 | XMS_ITS ---
Author Name [facility] Organization Unknown Results Test Name/Text Value Interpretation Date Range Source PT TIME PPP 25.2 sec Above high normal 04/12/2024 10.5 - 13 .3 [facility] INR PPP 2.1 Above high normal 04/12/2024 0.8 - 1.1 [facility] INR PPP 2.1 Above high normal 04/05/2024 0.8 - 1.1 C [facility] PT TIME PPP 24.9 sec Above high normal 04/05/2024 10.5 - 13 .3 [facility] PT TIME PPP 45.2 sec Above high normal 03/29/2024 10.5 - 13 .3 [facility] INR PPP 3.9 Above high normal 03/29/2024 0.8 - 1.1 [facility] LYMPHOCYTES NFR BLD AUTO 33.2 % Normal 03/29/2024 20 - 48 [facility] DIFFERENTIAL TYPE AUTOMATED Normal 03/29/20[facility] HGB BLD [facility]NC 12.1 g/dL Below low normal 03/29/2024 13.5 - 18 [facility] EOSINOPHIL NFR BLD AUTO 0.4 % Normal 03/29/2024 0 - 6 [facility] PLATELET NO. BLD AUTO 238.0 K/uL Normal 03/29/2024 150 - 450 [facility] MCHC RBC AUTO MCNC 33.7 g/dL Normal 03/29/2024 32 - 36 [facility] BASOPHILS IN BLOOD BY AUTOMATED COUNT 0.0 K/uL Normal 03/29/2024 0 - 0.2 [facility] HCT VFR BLD AUTO 36.0 % Below low normal 03/29/2024 40 - 54 [facility] MCV RBC AUTO 95.7 fL Normal 03/29/2024 78 - 100 [facility] MONOCYTES NO. BLD AUTO 0.5 K/uL Normal 03/29/2024 0 - 0. 8 [facility] RBC NO. BLD AUTO 3.76 M/uL Below low normal 03/29/2024 4.7 - 6 [facility] NEUTROPHILS NFR BLD AUTO 59.8 % Normal 03/29/2024 44 - 74 [facility] MCH RBC QN AUTO 32.2 pg Normal 03/29/2024 25 - 33 [facility] RDW RBC AUTO RTO 14.7 % Normal 03/29/2024 12.1 - 17.7 [facility] EOSINOPHIL NO. BLD AUTO 0.0 K/uL Normal 03/29/2024 0 - 0 .5 [facility] PMV BLD AUTO 8.6 fL Normal 03/29/2024 7.4 - 11.4 [facility] MH LYMPHOCYTES NO. BLD AUTO 2.5 K/uL Normal 03/29/2024 1 - 3.2 [facility] MONOCYTES NFR BLD AUTO 6.2 % Normal 03/29/2024 2 - 12 [facility] BASOPHILS NFR BLD AUTO 0.4 % Normal 03/29/2024 0 - 2 [facility] WBC NO. BLD AUTO 7.7 K/uL Normal 03/29/2024 4 - 10.5 [facility] NEUTROPHILS NO. BLD AUTO 4.6 K/uL Normal 03/29/2024 1.8 - 7.8 [facility] INR PPP 2.7 Above high normal 03/01/2024 0.8 - 1.1 C [facility] PT TIME PPP 31.2 sec Above high normal 03/01/2024 10.5 - 13 .3 [facility] PT TIME PPP 31.1 sec Above high normal 02/10/2024 10.5 - 13 .3 [facility] INR PPP 2.6 Above high normal 02/10/2024 0.8 - 1.1 C [facility] PT TIME PPP 32.5 sec Above high normal 01/27/2024 10.5 - 13 .3 [facility] INR PPP 2.8 Above high normal 01/27/2024 0.8 - 1.1 [facility] PT TIME PPP 29.8 sec Above high normal 01/19/2024 10.5 - 13 .3 [facility] INR PPP 2.5 Above high normal 01/19/2024 0.8 - 1.1 C [facility] PT TIME PPP 39.0 sec Above high normal 01/12/2024 10.5 - 13 .3 [facility] INR PPP 3.3 Above high normal 01/12/2024 0.8 - 1.1 C [facility] INR PPP 3.6 Above high normal 01/05/2024 0.8 - 1.1 C [facility] PT TIME PPP 42.4 sec Above high normal 01/05/2024 10.5 - 13 .3 [facility] PT TIME PPP 33.4 sec Above high normal 12/30/2023 10.5 - 13 .3 [facility] INR PPP 2.8 Above high normal 12/30/2023 0.8 - 1.1 C [facility] MAGNESIUM SERPL MCNC 2.1 mg/dL Normal 12/23/2023 1.7 - 2. 8 [facility] TRIGL SERPL-MCNC 104.0 mg/dL Normal 12/23/2023 - 150 [facility] LDLc SerPl Calc-mCnc 62.0 mg/dL Normal 12/23/2023 50 - 13 0 [facility] HDLC SERPL-MCNC 57.0 mg/dL Normal 12/23/2023 32 - 70 [facility] CHOLEST SERPL-MCNC 140.0 mg/dL Normal 12/23/2023 0 - 200 [facility] AST SERPL CCNC 22.0 U/L Normal 12/23/2023 5 - 40 [facility] ALP SERPL-CCNC 58.0 U/L Normal 12/23/2023 34 - 104 [facility] ALBUMIN SERPL BCG MCNC 4.5 g/dL Normal 12/23/2023 3.5 - 5 [facility] ALT SERPL CCNC 29.0 U/L Normal 12/23/2023 7 - 52 [facility] PROT SERPL MCNC 6.8 g/dL Normal 12/23/2023 6.4 - 8.5 [facility] CHLORIDE SERPL SCNC 105.0 mmol/L Normal 12/23/2023 98 - 1 07 [facility] SODIUM SERPL SCNC 143.0 mmol/L Normal 12/23/2023 135 - 14 5 [facility] CREAT SERPL MCNC 0.9 mg/dL Normal 12/23/2023 0.7 - 1.3 [facility] POTASSIUM SERPL SCNC 4.4 mmol/L Normal 12/23/2023 3.5 - 5 .1 [facility] CALCIUM SERPL MCNC 9.7 mg/dL Normal 12/23/2023 8.4 - 10.[address] [facility] Glomerular filtration rate/1.73 sq M. predicted 83.0 Normal 12/23/2023 60 - [facility] BUN SERPL MCNC 18.0 mg/dL Normal 12/23/2023 9 - 20 [facility] BILIRUB SERPL MCNC 0.6 mg/dL Normal 12/23/2023 0.3 - [address] [facility] GLUCOSE SERPL MCNC 126.0 mg/dL Normal 12/23/2023 70 - [address] [facility] ANION GAP SERPL SCNC 8.0 mmol/L Normal 12/23/2023 5 - 14 [facility] HCO3 SER SCNC 30.0 mmol/L Normal 12/23/2023 24 - 32 [facility] INR PPP 1.5 Above high normal 12/23/2023 0.8 - 1.1 C [facility] PT TIME PPP 17.3 sec Above high normal 12/23/2023 10.5 - 13 .[address] [facility] BNP BLD MCNC 200.0 pg/mL Above high normal 12/23/2023 0 - 10 [address] [facility] K/L FLC Ratio 1.26 Normal 12/26[facility]2023 [facility] Free Lambda Light Chains 1.31 Normal 12/26/[address] [facility] Free [place] Light Chains 1.65 Normal 12/26/[address] [facility] INR PPP 2.9 Above high normal 12/08/2023 0.8 - 1.1 C [facility] PT TIME PPP 33.7 sec Above high normal 12/08/2023 10.5 - 13 .3 [facility] PT TIME PPP 32.5 sec Above high normal 12/02/2023 10.5 - 13 .3 [facility] INR PPP 2.8 Above high normal 12/02/2023 0.8 - 1.1 C [facility] INR PPP 1.9 Above high normal 11/24/2023 0.8 - 1.1 C [facility] PT TIME PPP 22.4 sec Above high normal 11/24/2023 10.5 - 13 .3 [facility] INR PPP 2.0 Above high normal 11/17/2023 0.8 - 1.1 C [facility] PT TIME PPP 23.3 sec Above high normal 11/17/2023 10.5 - 13 .[address] [facility] BUN SERPL MCNC 14.0 mg/dL Normal 11/11/2023 9 - 20 [facility] EOSINOPHIL NO. BLD AUTO 0.0 K/uL Normal 11/11/2023 0 - 0 .[address] [facility] MCHC RBC AUTO MCNC 33.8 g/dL Normal 11/11/2023 32 - [address] [facility] RDW RBC AUTO RTO 14.6 % Normal 11/11/2023 12.1 - 17.7 [facility] MONOCYTES NFR BLD AUTO 5.0 % Normal 11/11/2023 2 - 12 [facility] EOSINOPHIL NFR BLD AUTO 0.8 % Normal 11/11/2023 0 - 6 [facility] LYMPHOCYTES NFR BLD AUTO 34.1 % Normal 11/11/2023 20 - 48 [facility] NEUTROPHILS NFR BLD AUTO 59.6 % Normal 11/11/2023 44 - [address] [facility] PMV BLD AUTO 9.0 fL Normal 11/11/2023 7.4 - 11.4 [facility] WBC NO. BLD AUTO 6.3 K/uL Normal 11/11/2023 4 - 10.5 [facility] BASOPHILS IN BLOOD BY AUTOMATED COUNT 0.0 K/uL Normal 11/11/2023 0 - 0.2 [facility] HCT VFR BLD AUTO 38.5 % Below low normal 11/11/2023 40 - 54 [facility] MCV RBC AUTO 95.0 fL Normal 11/11/2023 78 - 100 [facility] DIFFERENTIAL TYPE AUTOMATED Normal 11/11/2023 C [facility] MCH RBC QN AUTO 32.1 pg Normal 11/11/2023 25 - 33 [facility] LYMPHOCYTES NO. BLD AUTO 2.2 K/uL Normal 11/11/2023 1 - 3.2 [facility] BASOPHILS NFR BLD AUTO 0.5 % Normal 11/11/2023 0 - 2 [facility] NEUTROPHILS NO. BLD AUTO 3.8 K/uL Normal 11/11/2023 1.8 - 7.8 [facility] MONOCYTES NO. BLD AUTO 0.3 K/uL Normal 11/11/2023 0 - 0. [address] [facility] HGB BLD MCNC 13.0 g/dL Below low normal 11/11/2023 13.5 - 18 [facility] PLATELET NO. BLD AUTO 255.0 K/uL Normal 11/11/2023 150 - [address] [facility] RBC NO. BLD AUTO 4.05 M/uL Below low normal 11/11/2023 4.7 - 6 [facility] PSA SERPL-MCNC 0.0 ng/mL Normal 11/12/2023 0 - 4 [facility] CREAT SERPL MCNC 0.7 mg/dL Normal 11/11/2023 0.7 - 1.3 [facility] Glomerular filtration rate/1.73 sq M. predicted 89.0 Normal 11/11/2023 60 - [facility] Hgb A1c MFr Bld HPLC 5.7 % Above high normal 11/12/2023 - 5.7 [facility] AST SERPL [facility]NC 20.0 U/L Normal 11/11/2023 5 - 40 [facility] BILIRUB DIRECT SERPL MCNC 0.1 mg/dL Normal 11/11/2023 0 - 0.[address] [facility] BILIRUB SERPL MCNC 0.7 mg/dL Normal 11/11/2023 0.3 - 1 [facility] ALBUMIN SERPL BCG MCNC 4.3 g/dL Normal 11/11/2023 3.5 - [address] [facility] ALBUMIN/GLOB SERPL MRTO 1.7 Normal 11/11/[address] [facility] PROT SERPL MCNC 6.8 g/dL Normal 11/11/2023 6.4 - 8.5 [facility] ALT SERPL CCNC 21.0 U/L Normal 11/11/2023 7 - 52 [facility] ALP SERPL-CCNC 53.0 U/L Normal 11/11/2023 34 - 104 [facility] 25(OH)D3+25(OH)D2 SerPl IA-mCnc 31.0 ng/mL Normal 11/12/2023 30 - [address] [facility] TSH SerPl DL<=0.005 mIU/L-aCnc 1.86 uIU/mL Normal 11/11/2023 0.45 - 5.33 [facility] CHOLEST SERPL-MCNC 139.0 mg/dL Normal 11/11/2023 0 - 200 [facility] HDLC SERPL-MCNC 45.0 mg/dL Normal 11/11/2023 32 - 70 [facility] TRIGL SERPL-MCNC 129.0 mg/dL Normal 11/11/2023 - 150 [facility] LDLc SerPl Calc-mCnc 68.0 mg/dL Normal 11/11/2023 50 - 13 [address] [facility] VIT B12 SER MCNC 565.0 pg/mL Normal 11/12/2023 180 - 914 [facility] ANION GAP SERPL SCNC 10.0 mmol/L Normal 11/11/2023 5 - 14 [facility] POTASSIUM SERPL SCNC 4.4 mmol/L Normal 11/11/2023 3.5 - 5 .1 [facility] SODIUM SERPL SCNC 143.0 mmol/L Normal 11/11/2023 135 - 14 5 [facility] CHLORIDE SERPL SCNC 105.0 mmol/L Normal 11/11/2023 98 - 1 07 [facility] HCO3 SER SCNC 28.0 mmol/L Normal 11/11/2023 24 - 32 [facility] GLUCOSE P FAST SERPL MCNC 109.0 mg/dL Above high normal 11/11/2023 70 - 99 [facility] INR PPP 1.6 Above high normal 11/11/2023 0.8 - 1.1 C [facility] PT TIME PPP 19.0 sec Above high normal 11/11/2023 10.5 - 13 .3 [facility] INR PPP 1.9 Above high normal 11/03/2023 0.8 - 1.1 C [facility] PT TIME PPP 22.1 sec Above high normal 11/03/2023 10.5 - 13 .3 [facility] INR PPP 2.7 Above high normal 10/07/2023 0.8 - 1.1 C [facility] PT TIME PPP 31.7 sec Above high normal 10/07/2023 10.5 - 13 .3 [facility] PT TIME PPP 30.9 sec Above high normal 09/08/2023 10.5 - 13 .3 [facility] INR PPP 2.6 Above high normal 09/08/2023 0.8 - 1.1 C [facility] PT TIME PPP 19.1 sec Above high normal 08/19/2023 10.5 - 13 .3 [facility] INR PPP 1.6 Above high normal 08/19/2023 0.8 - 1.1 C [facility] INR PPP 2.6 Above high normal 07/22/2023 0.8 - 1.1 [facility] PT TIME PPP 30.6 sec Above high normal 07/22/2023 10.5 - 13 .[address] [facility] MAGNESIUM SERPL MCNC 2.3 mg/dL Normal 06/24/2023 1.7 - 2. 8 [facility] GLUCOSE P FAST SERPL MCNC 103.0 mg/dL Above high normal 06/24/2023 70 - 99 [facility] CHLORIDE SERPL SCNC 106.0 mmol/L Normal 06/24/2023 98 - 1 07 [facility] ANION GAP SERPL SCNC 6.0 mmol/L Normal 06/24/2023 5 - 14 [facility] ALT SERPL CCNC 26.0 U/L Normal 06/24/2023 7 - 52 [facility] SODIUM SERPL SCNC 141.0 mmol/L Normal 06/24/2023 135 - 14 [address] [facility] CREAT SERPL MCNC 0.9 mg/dL Normal 06/24/2023 0.7 - 1.3 [facility] POTASSIUM SERPL SCNC 4.3 mmol/L Normal 06/24/2023 3.5 - 5 .1 [facility] AST SERPL CCNC 20.0 U/L Normal 06/24/2023 5 - 40 [facility] PROT SERPL MCNC 7.0 g/dL Normal 06/24/2023 6.4 - 8.5 [facility] HCO3 SER SCNC 29.0 mmol/L Normal 06/24/2023 24 - 32 [facility] ALBUMIN SERPL BCG MCNC 4.5 g/dL Normal 06/24/2023 3.5 - 5 [facility] CALCIUM SERPL MCNC 10.2 mg/dL Normal 06/24/2023 8.4 - 10. [address] [facility] BILIRUB SERPL MCNC 0.6 mg/dL Normal 06/24/2023 0.3 - 1 [facility] BUN SERPL MCNC 21.0 mg/dL Above high normal 06/24/2023 9 - 2 [address] [facility] Glomerular filtration rate/1.73 sq M. predicted 83.0 Normal 06/24/2023 60 - [facility] ALP SERPL-CCNC 61.0 U/L Normal 06/24/2023 34 - 104 [facility] INR PPP 2.3 Above high normal 06/24/2023 0.8 - 1.1 C [facility] PT TIME PPP 27.0 sec Above high normal 06/24/2023 10.5 - 13 .3 [facility] TRIGL SERPL-MCNC 129.0 mg/dL Normal 06/24/2023 - [address] [facility] HDLC SERPL-MCNC 55.0 mg/dL Normal 06/24/2023 32 - 70 [facility] LDLc SerPl Calc-mCnc 59.0 mg/dL Normal 06/24/2023 50 - 13 [address] [facility] CHOLEST SERPL-MCNC 140.0 mg/dL Normal 06/24/2023 0 - 200 [facility] PT TIME PPP 30.0 sec Above high normal 05/27/2023 10.5 - 13 .3 [facility] INR PPP 2.5 Above high normal 05/27/2023 0.8 - 1.1 C [facility] Problems Problem Status Onset Date Problem Type Date of Resolution Source Longstanding persistent atrial fibrillation (HCC) active EncounterDiagnosisAct [facility] Encounters Encounter Type Encounter Reason Primary Diagnosis Location Date Ambulatory Longstanding persistent atrial fibrillation Longstanding persistent atrial fibrillation [facility] 04/12/2024 Ambulatory Longstanding persistent atrial fibrillation Longstanding persistent atrial fibrillation [facility] 04/05/2024 Ambulatory Longstanding persistent atrial fibrillation Longstanding persistent atrial fibrillation [facility] 03/29/2024 Ambulatory Longstanding persistent atrial fibrillation Longstanding persistent atrial fibrillation [facility] 03/01/2024 Ambulatory Longstanding persistent atrial fibrillation Longstanding persistent atrial fibrillation [facility] 02/09/2024 Ambulatory Longstanding persistent atrial fibrillation Longstanding persistent atrial fibrillation [facility] 01/26/2024 Ambulatory Longstanding persistent atrial fibrillation Longstanding persistent atrial fibrillation [facility] 01/19/2024 Ambulatory Longstanding persistent atrial fibrillation Longstanding persistent atrial fibrillation [facility] 01/12/2024 Ambulatory Longstanding persistent atrial fibrillation Longstanding persistent atrial fibrillation [facility] 01/05/2024 Ambulatory Longstanding persistent atrial fibrillation Longstanding persistent atrial fibrillation [facility] 12/29/2023 Ambulatory Longstanding persistent atrial fibrillation Longstanding persistent atrial fibrillation [facility] 12/22/2023 Ambulatory Longstanding persistent atrial fibrillation Longstanding persistent atrial fibrillation [facility] 12/08/2023 Ambulatory Unspecified atrial fibrillation Unspecified atrial fibrillation [facility] 12/01/2023 Ambulatory Longstanding persistent atrial fibrillation Longstanding persistent atrial fibrillation [facility] 11/24/2023 Ambulatory Longstanding persistent atrial fibrillation Longstanding persistent atrial fibrillation [facility] 11/17/2023 Ambulatory Encounter for screening for malignant neoplasm of prostate Encounter for screening for malignant neoplasm of prostate [facility] 11/11/2023 Ambulatory Longstanding persistent atrial fibrillation Longstanding persistent atrial fibrillation [facility] 11/10/2023 Ambulatory Longstanding persistent atrial fibrillation Longstanding persistent atrial fibrillation [facility] 11/03/2023 Ambulatory Unspecified atrial fibrillation Unspecified atrial fibrillation [facility] 10/06/2023 Ambulatory Longstanding persistent atrial fibrillation Longstanding persistent atrial fibrillation [facility] 09/08/2023 Ambulatory Longstanding persistent atrial fibrillation Longstanding persistent atrial fibrillation [facility] 08/18/2023 Ambulatory Longstanding persistent atrial fibrillation Longstanding persistent atrial fibrillation [facility] 07/21/2023 Ambulatory Unspecified atrial fibrillation Unspecified atrial fibrillation [facility] 06/23/2023 Ambulatory Longstanding persistent atrial fibrillation Longstanding persistent atrial fibrillation [facility] 05/26/2023 Ambulatory Longstanding persistent atrial fibrillation Longstanding persistent atrial fibrillation [facility] 04/28/2023 Ambulatory Longstanding persistent atrial fibrillation Longstanding persistent atrial fibrillation [facility] 03/31/2023 Ambulatory Longstanding persistent atrial fibrillation Longstanding persistent atrial fibrillation [facility] 03/02/2023 Ambulatory Longstanding persistent atrial fibrillation Longstanding persistent atrial fibrillation [facility] 02/02/2023 Ambulatory Unspecified atri al fibrillation [facility] 01/05/2023 Ambulatory Unspecified atri al fibrillation [facility] 12/09/2022 Care Team Organization Name Specialty Phone Email Start Date End Da te [facility] Primary Care 12/0912/09/2022 [facility] 11/13/2022 [facility] Care
== END 2025-05-21 14:59 | disposition home or self-care (01) ==
PROVIDERS: PCP Student in an Organized Health Care Education/Training Program; Visit Provider Student in an Organized Health Care Education/Training Program
DX: Z23 Encounter for immunization (principal)

== ENCOUNTER 2025-05-21 13:06 | Outpatient (REF) | payer MEDICARE, SELFPAY ==
[2025-05-21 18:16] LABS: MANUAL DIFF FLAG NO
[2025-05-21 18:19] LABS: Hematocrit 40.0 % (42.0-52.0); Hemoglobin 13.2 g/dl (14.0-18.0); Imm Gran Abs Auto 0.02 X10*3/uL (0.00-0.03); Imm Gran Pct Auto 0.3 % (0.0-0.4); Lymphocytes Absolute Auto 2.7 X10*3/uL (1.2-4.9); Mean Corpuscular HGB Conc 33.0 g/dl (31.0-36.0); Mean Corpuscular Hemoglobin 31.0 pg (27.0-33.0); Mean Corpuscular Volume 93.9 fL (80.0-98.0); NRBC Abs Auto 0.000 X10*3/uL (0.0-0.012); NRBC Pct Auto 0.0 /100WBC (0.0-0.2); Platelet Count 315 X10*3/uL (160-400); Red Blood Count 4.26 X10*6/uL (4.60-5.80); White Blood Count 6.9 X10*3/uL (4.8-10.8)
[2025-05-21 18:26] LABS: INTERNATIONAL NORM RATIO 2.5 (0.9-1.1); Prothrombin Time 30.0 SEC (11.2-13.5)
[2025-05-21 18:29] LABS: Partial Thromboplastin Time 43.3 SEC (26.7-34.1)
[2025-05-21 18:49] LABS: Alanine Aminotransferase 43 U/L (0-40); Albumin Level 4.7 g/dL (3.5-5.0); Alkaline Phosphatase 74 U/L (39-117); Anion Gap 9 (12-20); Aspartate Amino Transferase 48 U/L (5-37); Blood Urea Nitrogen 23 mg/dL (9-16); Calcium 9.8 mg/dL (8.4-10.2); Carbon Dioxide 27 mmol/L (22-29); Chloride 108 mmol/L (96-108); Cholesterol 147 mg/dL (<200); Estimated Glomerular Filt Rate > 60; HDL Cholesterol 52 mg/dL (>40); Magnesium 2.3 mg/dL (1.6-2.6); Potassium 4.1 mmol/L (3.3-5.1); Sodium 140 mmol/L (135-145); Total Protein 7.4 g/dL (6.5-8.0); Triglycerides 159 mg/dL (<150)
[2025-05-21 19:21] LABS: Folate 15.2 ng/mL (> or = 4.0); Vitamin B12 789 pg/mL (200-900)
[2025-05-22 05:50] LABS: HBS Num1 0.00 mIU/mL (0-7.99); HBsAGNum1 0.40 S/CO (0.00-0.99); HIV Num 1 0.06 S/CO (0.00-0.99); Hepatitis B Surface Antigen Negative (Negative); ~HepC Num1 0.39 S/CO (0.00-0.79); ~Hepatitis B Surface Antibody NONREACTIVE (Nonreactive); ~Hepatitis C Antibody Nonreactive (Nonreactive)
[2025-05-22 06:20] LABS: Syphilis Screen Nonreactive (Nonreactive)
[2025-05-25 12:04] LABS: Vitamin D 25-OH, D2 <4 ng/mL; Vitamin D 25-OH, D3 38 ng/mL; Vitamin D 25-OH, Total 38 ng/mL (30-100)
== END 2025-05-21 13:07 | disposition home or self-care (01) ==
LOC: HO.HKASLDS 13:06
PROVIDERS: PCP Student in an Organized Health Care Education/Training Program; Visit Provider Student in an Organized Health Care Education/Training Program
DX: I25.10 Atherosclerotic heart disease of native coronary artery without angina pectoris (principal); Z13.31 Encounter for screening for depression; Z13.39 Encounter for screening examination for other mental health and behavioral disorders; Z23 Encounter for immunization; Z95.0 Presence of cardiac pacemaker; Z91.81 History of falling; M25.561 Pain in right knee; N40.0 Benign prostatic hyperplasia without lower urinary tract symptoms; E78.5 Hyperlipidemia, unspecified; Z95.2 Presence of prosthetic heart valve; Z95.1 Presence of aortocoronary bypass graft; H61.20 Impacted cerumen, unspecified ear; L85.3 Xerosis cutis; Z13.1 Encounter for screening for diabetes mellitus; Z79.01 Long term (current) use of anticoagulants; M25.569 Pain in unspecified knee
CPT/HCPCS: 36415; 80053; 80061; 82306; 82607; 82746; 83036; 83735; 84443; 85025; 85610; 85730; 86706; 86780; 86803; 87340; 87389; 90471; 90656; 99202